=== PATIENT | male | born 1990 | race Caucasian/White ===

== ENCOUNTER 2023-08-02 21:06 | Emergency (ER) | payer OTHER ==
[2023-08-02] MEDS ORDERED: SODIUM CHLORIDE 1,000 ML IV STA (22:11)
[2023-08-02] MEDS ORDERED: ACETAMINOPHEN 1000 MG/100 ML BAG IVPB ONE (22:11)
[2023-08-02 23:44] LABS: HEMATOCRIT 49.4 % (35.4-49); HEMOGLOBIN 16.8 GM/dL (11.7-16.9); MCH 29.3 pg (25.7-33.7); MCHC 34.1 g/dl (32.0-35.9); MEAN CELL VOLUME 85.8 fl (80-96); PLATELET COUNT 277 10^3/uL (134-434); RBC 5.75 M/mm3 (4.00-5.60); RDW 13.2 % (11.9-15.9); WHITE BLOOD COUNT 7.3 K/mm3 (4.0-10.0)
[2023-08-03 00:02] LABS: PH,URINE 5.5 (5.0-8.0); URINE APPEARANCE CLEAR; URINE BILIRUBIN NEGATIVE (NEGATIVE); URINE COLOR YELLOW; URINE GLUCOSE (UA) NEGATIVE (NEGATIVE); URINE KETONE NEGATIVE (NEGATIVE); URINE LEUK ESTERASE NEGATIVE (NEGATIVE); URINE NITRITE NEGATIVE (NEGATIVE); URINE PROTEIN NEGATIVE (NEGATIVE); URINE UROBILINOGEN 0.2 mg/dL (0.2-1.0)
[2023-08-03 00:14] LABS: CALCIUM 9.5 mg/dL (8.5-10.1)
[2023-08-03 00:15] LABS: ALBUMIN 4.3 g/dl (3.4-5.0)
[2023-08-03 00:16] LABS: POTASSIUM 4.1 mmol/L (3.5-5.1)
[2023-08-03] MEDS ORDERED: SODIUM CHLORIDE 1,000 ML IV STA (00:17)
[2023-08-03 00:18] LABS: CREATININE 0.9 mg/dL (0.55-1.3)
[2023-08-03 00:20] LABS: TOT PROT 7.4 g/dl (6.4-8.2)
[2023-08-03 00:30] LABS: BLOOD UREA NITROGEN 12.2 mg/dL (7-18)
[2023-08-03 00:37] LABS: BILIRUBIN,TOTAL 0.5 mg/dL (0.2-1)
[2023-08-03 02:05] VITALS: BP 122/73; PULSE 93; RESP 18; TEMP 98.8; BMI 32.5
== END 2023-08-03 02:07 | disposition home or self-care (01) ==
LOC: FER 21:06
PROC: 3E0337Z Introduction of Electrolytic and Water Balance Substance into Peripheral Vein, Percutaneous Approach (ICD-10-PCS; principal; 2023-08-02)
DX: U07.1 COVID-19 (principal); R00.2 Palpitations; J06.9 Acute upper respiratory infection, unspecified; E86.0 Dehydration; M79.10 Myalgia, unspecified site; R07.0 Pain in throat; R05.9 Cough, unspecified; R50.9 Fever, unspecified; R51.9 Headache, unspecified
CPT/HCPCS: 0241U-QW; 36415; 71045-TC-FY; 80053; 81003; 84484; 85027; 85379; 93005; 99285-25